=== PATIENT | male | born 1985 | race Caucasian/White ===

== ENCOUNTER 2017-09-21 12:18 | Inpatient (IN) | payer OTHER ==
[2017-09-21 13:36] LABS: ADD MAN DIFF? NO
[2017-09-21 13:38] LABS: BASOPHILS % 0.3 % (0.0-2.0); HEMATOCRIT 42.5 % (42.0-52.0); HEMOGLOBIN 15.4 g/dl (14.0-18.0); LYMPHOCYTES # 1.1 10^3/ul (0.8-2.9); LYMPHOCYTES % 9.2 % (15.0-51.0); MEAN CORPUSCULAR HGB CONC 36.2 g/dl (32.0-37.0); MEAN CORPUSCULAR VOLUME 88.2 fl (82.0-101.0); MEAN PLATELET VOLUME 8.8 fl (7.4-10.4); MONOCYTE # 0.7 10^3/ul (0.3-0.9); MONOCYTES % 6.1 % (0.0-11.0); NEUTROPHIL # 9.9 10^3/ul (1.6-7.5); NEUTROPHILS % 84.1 % (39.0-77.0); PLATELET COUNT 330 10^3/UL (140-415); RED BLOOD COUNT 4.82 10^6/ul (4.70-6.10); RED CELL DISTRIBUTION WIDTH 11.7 % (11.5-14.5)
[2017-09-21 13:38] LABS: WHITE BLOOD COUNT 11.8 10^3/ul (4.8-10.8)
[2017-09-21] MEDS: SOD CHLORIDE 0.9% 1,000 ML IV ×2 (13:38→16:02)
[2017-09-21 13:51] LABS: ADD UMIC NO; UR ASCORBIC ACID NEGATIVE (NEGATIVE); UR BILIRUBIN (Dip) NEGATIVE (NEGATIVE); UR BLOOD (Dip) NEGATIVE (NEGATIVE); UR CLARITY CLEAR (CLEAR); UR COLOR YELLOW (YELLOW); UR GLUCOSE (Dip) NEGATIVE (NEGATIVE); UR KETONES (Dip) NEGATIVE (NEGATIVE); UR LEUKOCYTE ESTERASE (Dip) NEGATIVE Leu/ul (NEGATIVE); UR NITRITE (Dip) NEGATIVE (NEGATIVE); UR SPECIFIC GRAVITY (Dip) 1.039 (1.003-1.030); UR TOTAL PROTEIN (Dip) NEGATIVE (NEGATIVE); UR UROBILINOGEN (Dip) NEGATIVE (NEGATIVE)
[2017-09-21 13:57] LABS: ALANINE AMINOTRANSFERASE 34 IU/L (13-69); ALBUMIN 4.8 g/dl (3.3-4.9); ALBUMIN/GLOBULIN RATIO 1.65; ALKALINE PHOSPHATASE 64 IU/L (42-121); ANION GAP 15 (8-16); ASPARTATE AMINO TRANSFERASE 22 IU/L (15-46); BILIRUBIN,INDIRECT 0.7 mg/dl (0-1.1); BILIRUBIN,TOTAL 0.7 mg/dl (0.2-1.3); BLOOD UREA NITROGEN 11 mg/dl (7-20); CALCIUM 9.4 mg/dl (8.4-10.2); CARBON DIOXIDE 24 mmol/L (21-31); CHLORIDE 108 mmol/L (97-110); CREATININE 0.82 mg/dl (0.61-1.24); GLUCOSE 115 mg/dl (70-220); LIPASE 55 U/L (23-300); SODIUM 143 mmol/L (135-144); TOTAL PROTEIN 7.7 g/dl (6.1-8.1)
[2017-09-21] MEDS: ONDANSETRON 4 MG INJ IV (14:17)
[2017-09-21] MEDS: morphine 4 MG/ML VIAL IV (14:17)
[2017-09-21] MEDS ORDERED: ONDANSETRON 4 MG INJ IV ×3 (15:00→21:00)
[2017-09-21] MEDS ORDERED: ACETAMINOPHEN 325 MG TAB PO (15:00)
[2017-09-21] MEDS ORDERED: HYDROCODONE/APAP (5/325) TAB PO (15:00)
[2017-09-21] MEDS ORDERED: NACL 0.9% 3 ML SYG IV (15:00)
[2017-09-21 15:17] LABS: CHOLESTEROL 126 mg/dl (100-200)
[2017-09-21 15:17] LABS: CHOL/HDL RATIO 3.3 RATIO; HDL CHOLESTEROL 38 mg/dl (28-63); LDL CHOLESTEROL,CALCULATED 67 mg/dl; TRIGLYCERIDES 103 mg/dl (0-149)
[2017-09-21 15:35] LABS: FREE T4 (FREE THYROXINE) 0.96 ng/dl (0.79-2.35)
[2017-09-21 15:37] LABS: HEMOGLOBIN A1C 5.1 % (0-5.9)
[2017-09-21] MEDS ORDERED: FENTAnyl 50 MCG/ML VIAL ×2 (20:37→21:42)
[2017-09-21] MEDS ORDERED: MIDAZOLAM 1 MG/ML 2 ML INJ (20:37)
[2017-09-21] MEDS ORDERED: PROPOFOL 20 ML (20:37)
[2017-09-21] MEDS ORDERED: CEFAZOLIN 1 GM INJ (20:37)
[2017-09-21] MEDS ORDERED: ROCURONIUM 50 MG INJ (20:37)
[2017-09-21] MEDS ORDERED: ROPIVACAINE 0.5 % 30 ML VIAL (20:38)
[2017-09-21] MEDS ORDERED: DIPHENHYDRAMINE 50 MG INJ IV (21:00)
[2017-09-21] MEDS ORDERED: FENTAnyl 50 MCG/ML VIAL IV ×3 (21:00)
[2017-09-21] MEDS ORDERED: METOCLOPRAMIDE 10 MG INJ IV (21:00)
[2017-09-21] MEDS ORDERED: hydrALAzine 20 MG INJ IV (21:00)
[2017-09-21] MEDS ORDERED: LABETALOL HCL 20MG INJ IV (21:00)
[2017-09-21] MEDS ORDERED: EPHEDrine SULFATE 50 MG/5 ML SYG IV (21:00)
[2017-09-21] MEDS ORDERED: HYDROmorphONE 1 MG/5 ML IV SYRINGE IV ×3 (21:00)
[2017-09-21] MEDS ORDERED: MEPERIDINE 25 MG INJ IV (21:00)
[2017-09-21] MEDS ORDERED: LIDOCAINE 1%/EPI 30 ML INJ (21:16)
[2017-09-21] MEDS ORDERED: BUPIVACAINE 0.25% (MPF) 30 ML INJ (21:16)
[2017-09-21] MEDS ORDERED: KETOROLAC 30 MG INJ (21:32)
[2017-09-21] MEDS ORDERED: ONDANSETRON 4 MG INJ (21:32)
[2017-09-21] MEDS ORDERED: METOCLOPRAMIDE 10 MG INJ (21:32)
[2017-09-21] MEDS ORDERED: DEXAMETHASONE 4 MG/ML 1 ML INJ (21:32)
[2017-09-21] MEDS ORDERED: SUGAMMADEX SODIUM 200 MG/2 ML VIAL IV (21:54)
[2017-09-21] MEDS ORDERED: PIPER-TAZO 3.375 GM IV (PMX) 100 ML IVPB (22:00)
[2017-09-21] MEDS ORDERED: ACETAMINOPHEN 1000MG/100ML IV 100 ML (22:01)
[2017-09-22 00:12] LABS: ADD MAN DIFF? NO; BASOPHILS % 0.2 % (0.0-2.0); EOSINOPHILS % 0.3 % (0.0-7.0); HEMATOCRIT 38.5 % (42.0-52.0); HEMOGLOBIN 13.5 g/dl (14.0-18.0); LYMPHOCYTES # 0.7 10^3/ul (0.8-2.9); LYMPHOCYTES % 7.3 % (15.0-51.0); MEAN CORPUSCULAR HEMOGLOBIN 31.4 pg (29.0-33.0); MEAN CORPUSCULAR HGB CONC 35.1 g/dl (32.0-37.0); MEAN CORPUSCULAR VOLUME 89.5 fl (82.0-101.0); MONOCYTE # 0.3 10^3/ul (0.3-0.9); NEUTROPHIL # 8.1 10^3/ul (1.6-7.5); NEUTROPHILS % 88.9 % (39.0-77.0); PLATELET COUNT 270 10^3/UL (140-415); RED CELL DISTRIBUTION WIDTH 11.9 % (11.5-14.5)
[2017-09-22 00:12] LABS: WHITE BLOOD COUNT 9.1 10^3/ul (4.8-10.8)
[2017-09-22] MEDS: SOD CHLORIDE 0.9% 1,000 ML IV ×2 (00:33→08:27)
[2017-09-22] MEDS: morphine 2 MG INJ IV (00:44)
[2017-09-22 05:31] LABS: ADD MAN DIFF? NO
[2017-09-22 05:38] LABS: ABNORMAL IP MESSAGE 1; HEMOGLOBIN 13.9 g/dl (14.0-18.0); LYMPHOCYTES # 0.5 10^3/ul (0.8-2.9); LYMPHOCYTES % 5.9 % (15.0-51.0); MEAN CORPUSCULAR HEMOGLOBIN 31.7 pg (29.0-33.0); MEAN CORPUSCULAR HGB CONC 35.6 g/dl (32.0-37.0); MEAN CORPUSCULAR VOLUME 88.8 fl (82.0-101.0); MEAN PLATELET VOLUME 9.1 fl (7.4-10.4); MONOCYTE # 0.2 10^3/ul (0.3-0.9); MONOCYTES % 1.8 % (0.0-11.0); NEUTROPHIL # 8.3 10^3/ul (1.6-7.5); PLATELET COUNT 264 10^3/UL (140-415); POSITIVE DIFF @See below; RED BLOOD COUNT 4.39 10^6/ul (4.70-6.10); RED CELL DISTRIBUTION WIDTH 11.8 % (11.5-14.5)
[2017-09-22 06:26] LABS: PHOSPHORUS 2.7 mg/dl (2.5-4.9)
[2017-09-22 06:26] LABS: MAGNESIUM 2.3 mg/dl (1.7-2.5)
[2017-09-22 06:31] LABS: ANION GAP 12 (8-16); BLOOD UREA NITROGEN 9 mg/dl (7-20); CALCIUM 9.1 mg/dl (8.4-10.2); CARBON DIOXIDE 24 mmol/L (21-31); CHLORIDE 108 mmol/L (97-110); CREATININE 0.72 mg/dl (0.61-1.24); GLUCOSE 114 mg/dl (70-220); POTASSIUM 4.3 mmol/L (3.5-5.1); SODIUM 140 mmol/L (135-144)
== END 2017-09-22 11:10 | disposition home or self-care (01) | DRG 343 ==
LOC: MS2 20:04 → FTE 12:18 → MS2 14:59
PROC: 0DTJ4ZZ Resection of Appendix, Percutaneous Endoscopic Approach (ICD-10-PCS; principal; 2017-09-21 21:00)
DX: K35.80 Unspecified acute appendicitis (principal); Z87.891 Personal history of nicotine dependence
CPT/HCPCS: 36415; 80048; 80053; 80061; 81003; 83036; 83690; 83735; 84100; 84439; 84443; 85025; 88304; 96361; 96374; 96375; 99285-25

== ENCOUNTER 2018-05-07 14:57 | Emergency (ER) | payer SELFPAY, OTHER | END 2018-05-07 19:51 | disposition left against medical advice (07) | LOC: E/R 14:57 | DX: Z53.21 Procedure and treatment not carried out due to patient leaving prior to being seen by health care provider (principal) ==